=== PATIENT | male | born 2000 | race Caucasian/White ===

== ENCOUNTER 2023-05-02 22:43 | Emergency (ER) | payer BC ==
[2023-05-02] MEDS ORDERED: Bacitracin 1 PK ONE (23:36)
== END 2023-05-02 23:52 | disposition home or self-care (01) ==
LOC: CSHERS 22:43
DX: S06.0X0A Concussion without loss of consciousness, initial encounter (principal); S01.01XA Laceration without foreign body of scalp, initial encounter; W22.8XXA Striking against or struck by other objects, initial encounter
CPT/HCPCS: 12001; 99282